=== PATIENT | male | born 1965 | race Caucasian/White ===

== ENCOUNTER 2016-05-22 12:52 | Emergency (ER) | payer SELFPAY ==
[2016-05-22 12:59] VITALS: TEMP 97.5; BMI 35.4
--- NOTE | 2016-05-22 13:32 | EDPRACDOC ---
- General Information Chief Complaint: Shoulder Pain Stated Complaint: RIGHT SHOULDER PAIN - HX SURGERY Time Seen by Provider: 05/22/16 13:24 Information Source: Patient Mode of Arrival: Car Home Medications: Home Medications Cyclobenzaprine HCl [Flexeril] 10 mg PO TID PRN #15 tablet 05/22/16 Hydrocodone Bit/Acetaminophen [Lortab 5/325] 1 tab PO Q4-6H PRN #15 tab Prednisone [Deltasone, Orasone] 20 mg PO DAILY #20 tab 05/22/16 Allergies/Adverse Reactions: Allergies Allergy/AdvReac Type Severity Reaction Status Date / Time No Known Allergies Allergy Verified 11/16/13 16:45 - History of Present Illness Onset: 2 weeks HPI: Pt c/o increased pain in R shoulder x 2 weeks. Denies recent injury, cp, sob, neck pain. Pt states numbness in R hand. R hand dominate. 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 Denies: Diabetes, Stroke - Social Medical History Smoking Status: Heavy tobacco smoker (5 or more cigarettes/day or daily pipe/ cigar) ETOH: Social Substance Abuse: None EDM Review of Systems - Review of Systems Constitutional: No Symptoms Reported. negative: Fever, Chills, Weakness, Fatigue, Loss of Appetite Respiratory: No Symptoms Reported. negative: Cough, Brassy Cough, Barky Cough, Shortness of Breath, Wheezing, Hemoptysis Cardiovascular: No Symptoms Reported. negative: Chest Pain, Palpitations, Syncope, Edema, Orthopnea, PND, Skin Mottling, Cyanosis Gastrointestinal: No Symptoms Reported. negative: Pain, Constipation, Nausea, Vomiting, Diarrhea, Melena, Formula Intolerance Genitourinary: No Symptoms Reported. negative: Dysuria, Hematuria, Frequency, Discharge, Bleeding, Testicular Pain, Neurological: Numbness Musculoskeletal: Arm, Shoulder Integumentary: No Symptoms Reported. negative: Itching, Rash, Bruising, Wound Allergic/Immunologic: No Symptoms Reported. negative: Hives, Itching Hematologic: No Symptoms Reported. negative: Lymphadenopathy, Easy Bruising, Easy Bleeding Psychiatric: No Symptoms Reported. negative: Anxiety, Depression, Hallucinations, Insomnia, Suicidal - Physical Exam Constitutional: Alert Oriented to: Time, Person, Place Last recorded Vital Signs: Last Vital Signs Temp 97.5 F 05/22/16 12:59 Pulse 106 05/22/16 12:59 Resp 20 05/22/16 12:59 BP 175/110 H 05/22/16 12:59 Pulse Ox 96 05/22/16 12:59 Oxygen Pulse Oxygen Saturation 96 O2 Device Room Air Oxygen Flow Rate Fraction of Inspired Oxygen ( FIO2) - HEENT Head: Normal ( normocephalic) Eye Exam: Normal (PERRL, EOMI, Sclera white) Neck: Normal (FROM, trachea at midline) - Respiratory/Cardiovascular Respiratory: Normal - CTA (BBS clear to auscultation without adventitious sounds ) Cardiovascular: Normal (RRR without murmur, gallop or rub) - Musculoskeletal Back: Normal (Non-Tender) Extremities: Normal (Normal tone, Pulses 2+ No cyanosis or edema, FROM) - Integumentary Skin: Normal, Warm, Dry Lymphatics: Normal (no adenopathy) - Neurologic Memory Impaired: Normal Motor Function: Normal (Normal tone, Pulses 2+ No cyanosis or edema, FROM) Mood Description: Normal Perception: Normal ED Shoulder Problem Exam - Musculoskeletal Clavicle: Normal Shoulder: negative: Swelling, Ecchymosis, Deformity, Dislocation, Limited ROM, Tender, Other Drop arm test: Negative Impingement test: Negative Arm: Normal Distal Function/Circulation: Normal - Differential Diagnosis Arthritis, Cervical disc disease, Rotator cuff injury, Sprain - Diagnostic Imaging Shoulder Image interpreted by: Radiologist IMPRESSION: No acute bony pathology. Postoperative changes. Decision Time to Discharge: 14:16 - Departure Disposition: Home Condition: Good Final Diagnosis: Cervical radiculopathy Shoulder arthralgia Qualifiers: Laterality: right Qualified Code(s): M25.511 - Pain in right shoulder Instructions: Cervical Radiculopathy (ED), Shoulder Sprain (ED) Education/Counseling Given To: Patient Education/Counseling Given Regarding: Diagnosis, Treatment, Follow Up Referrals: Rossana Sullivan NP [Primary Care Provider] - One Week Greg Redmond MD [Staff Physician] - One Week Prescriptions: Cyclobenzaprine HCl [Flexeril] 10 mg PO TID PRN #15 tablet PRN Reason: Pain Hydrocodone Bit/Acetaminophen [Lortab 5/325] 1 tab PO Q4-6H PRN #15 tab PRN Reason: Pain Prednisone [Deltasone, Orasone] 20 mg PO DAILY #20 tab Additional Instructions: Return for worse or different symptoms.
--- NOTE | 2016-05-22 14:01 | DIRPT ---
CLINICAL DATA: Shoulder pain for 2.5 weeks EXAM: RIGHT SHOULDER - 2+ VIEW COMPARISON: None. FINDINGS: There is a metal screw in the right coracoid process. No acute fracture or dislocation. IMPRESSION: No acute bony pathology. Postoperative changes. Electronically Signed By: Liu Murdock M.D. On: 05/22/2016 13:59
[2016-05-22] MEDS ORDERED: HYDROCODONE 5 MG/ACETAMIN 325 MG TAB PO ONE (14:21)
[2016-05-22] MEDS ORDERED: PREDNISONE 20 MG TAB PO ONE (14:21)
[2016-05-22 14:33] VITALS: BP 176/115; PULSE 105
== END 2016-05-22 14:30 | disposition home or self-care (01) ==
LOC: EDMC 12:52
DX: M54.12 Radiculopathy, cervical region (principal); M25.511 Pain in right shoulder; I10 Essential (primary) hypertension; M10.9 Gout, unspecified; F17.200 Nicotine dependence, unspecified, uncomplicated; Z79.899 Other long term (current) drug therapy
CPT/HCPCS: 73030; 99283; J3490

== ENCOUNTER 2016-05-31 14:36 | Emergency (ER) | payer SELFPAY ==
[2016-05-31 15:06] VITALS: TEMP 97.7; BMI 36.1
--- NOTE | 2016-05-31 15:22 | EDPRACDOC ---
- General Information Chief Complaint: Hip Pain Stated Complaint: JOINT PAIN Time Seen by Provider: 05/31/16 15:19 Mode of Arrival: Car Home Medications: Home Medications Acetaminophen [Mapap] 1,500 mg PO Q8H PRN 05/31/16 Lisinopril [Prinivil] 10 mg PO DAILY 05/31/16 Oxycodone HCl [Roxicodone] 5 mg PO Q4 PRN #10 tablet 05/31/16 Prednisone [Deltasone] 20 mg PO BID #10 tablet 05/31/16 Allergies/Adverse Reactions: Allergies Allergy/AdvReac Type Severity Reaction Status Date / Time No Known Allergies Allergy Verified 11/16/13 16:45 - History of Present Illness Onset: 3 DAYS HPI: SATURDAY STARTED HAVING PAIN IN JOINTS-KNEES, HIPS. FEELS LIK EPRESSURE. CAN'T SLEEP, HARD GETTING OFF COUCH. SELLS CARS. 1.5 WEEKS AGO DEVELOPED SHOULDER PAIN, TOOK STEROID, MUSCLE RELAXER, IMPROVED. MEDICINE NONCOMPLIANCE FOR BP. TAKING ASPIRIN AND TYLENOL. NO RECENT SURGERIES. 8-10 BEERS PER DAY. PCP 5 POINTS MEDICAL. PAIN 7/10. ED Past Medical History - History Reviewed Yes Nurses notes reviewed and agree except as marked - Patient Medical History Cardiac History: Reports: Hypertension Musculoskeletal History: Reports: Gout Psychological History: Denies: Depression - Family Medical History Reports: Hypertension (father), Cancer (mother), Cardiac Disorders (father). Denies: Diabetes, Stroke - Social Medical History Smoking Status: Heavy tobacco smoker (5 or more cigarettes/day or daily pipe/ cigar) EDM Review of Systems - Review of Systems ROS Negative Except as Marked: Yes All systems reviewed and were negative except as marked Constitutional: No Symptoms Reported Respiratory: No Symptoms Reported Cardiovascular: No Symptoms Reported Neurological: Headache (INTERMITTENT.) Integumentary: No Symptoms Reported Allergic/Immunologic: No Symptoms Reported - Physical Exam Constitutional: Alert (Awake), No apparent distress Oriented to: Time, Person, Place Last recorded Vital Signs: Last Vital Signs Temp 97.7 F 05/31/16 14:44 Pulse 117 05/31/16 14:44 Resp 18 05/31/16 14:44 BP 206/105 H 05/31/16 14:44 Pulse Ox 94 05/31/16 14:44 Oxygen Pulse Oxygen Saturation 94 O2 Device Room Air Oxygen Flow Rate Fraction of Inspired Oxygen ( FIO2) - HEENT Head: Normal ( normocephalic) Eye Exam: Normal (PERRL, EOMI, Sclera white) Oropharynx: Normal (Pharynx:Moist without exudate,Gums-no swelling) Nose: No Symptoms Reported (septum midline) Neck: Normal (FROM, trachea at midline) - Respiratory/Cardiovascular Respiratory: Normal - CTA (BBS clear to auscultation without adventitious sounds ) Cardiovascular: Tachycardia - GI Auscultation: Normal (NABS) Palpation: Normal (Soft,No rebound or guarding, non distended) Tenderness: Non tender Fonseca's Sign: Negative - Musculoskeletal Back: Normal (Non-Tender) Extremities: Normal (Normal tone, Pulses 2+ No cyanosis or edema, FROM) - Integumentary Skin: Normal, Warm, Dry Lymphatics: Normal (no adenopathy) - Neurologic Memory Impaired: Normal Motor Function: Normal (Normal tone, Pulses 2+ No cyanosis or edema, FROM) Cranial Nerve: Normal (CN II-X11 intact sensation, strength 5/5) Cerebellar: Normal Mood Description: Normal Perception: Normal - Results 05/31/16 15:15 05/31/16 15:15 - EKG EKG #1 EKG Time: 15:16 -: Yes EKG interpreted by me Rate: bpm: 105 [place]: Normal Rhythm: ST Block: None Hypertrophy: None ST: Normal Comments: ABNORMAL EKG - Additional Information DISCUSSED WEIGHT LOSS, DIET MOD. DECREASED ETOH INTAKE. CHOL CHECK BY PCP. Decision Time to Discharge: 17:43 - Departure Yes I personally saw and evaluated the patient. Disposition: Home Condition: Stable Final Diagnosis: Arthralgia Qualifiers: Joint pain location: hip Laterality: bilateral Qualified Code(s): M25.551 - Pain in right hip; M25.552 - Pain in left hip Instructions: Arthralgia (ED) Education/Counseling Given To: Patient, Family Member Education/Counseling Given Regarding: Diagnosis, Treatment, Prognosis, Follow Up Referrals: Rosamaria Brown MD [Primary Care Provider] - One Week Prescriptions: Oxycodone HCl [Roxicodone] 5 mg PO Q4 PRN #10 tablet PRN Reason: Pain Prednisone [Deltasone] 20 mg PO BID #10 tablet Forms: Excuse Note
[2016-05-31] MEDS ORDERED: OXYCODONE HCL 5 MG TABLET PO ONE ×2 (15:28→17:44)
[2016-05-31] MEDS ORDERED: IBUPROFEN 600 MG TAB PO ONE (15:28)
[2016-05-31 15:37] LABS: AUTOMATED BASOPHIL 0.9 % (0-2); AUTOMATED EOSINOPHIL 2.4 % (0-5); AUTOMATED LYMPH 26.3 % (17-44); AUTOMATED MONOCYTE 8.5 % (3-10); AUTOMATED NEUTROPHIL 61.9 % (45-76); MPV 8.5 fL (7.4-10.4)
--- NOTE | 2016-05-31 15:50 | DIRPT ---
CLINICAL DATA: Bilateral hip and knee pain. Initial encounter. EXAM: CHEST 2 VIEW COMPARISON: PA and lateral chest 11/16/2013. FINDINGS: Mild linear atelectasis or scar is seen in the lung bases. The lungs are otherwise clear. Heart size is normal. No pneumothorax or pleural effusion. Postoperative change both shoulders is identified. Remote right rib fractures are noted. IMPRESSION: No acute abnormality. Electronically Signed By: Phillip Granger M.D. On: 05/31/2016 15:47
[2016-05-31 15:57] LABS: BLOOD UREA NITROGEN 24 MG/DL (9-20); CALCIUM 9.3 MG/DL (8.4-10.2); CALCULATED OSMOLALITY 267 MOs/Kg (270-290); CHLORIDE 100 mEq/L (98-107); GLUCOSE 109 MG/DL (70-99); SODIUM LEVEL 136 mEq/L (137-146); TOTAL PROTEIN 7.7 G/DL (6.3-8.2)
[2016-05-31 16:53] LABS: ALL NEG? YES; MDMA* NEG (NEGATIVE); METHAMPHETAMINES NEG (NEGATIVE); OXYCODONE NEG (NEGATIVE)
[2016-05-31 17:20] LABS: LEUKOCYTES/URINE NEG (NEGATIVE); NITRITE/URINE NEG (NEGATIVE); RBC/URINE 0-2 (0-2); URINE OCCULT BLOOD NEG (NEG/TRACE); WBC/URINE 0-2 (0-2)
[2016-05-31] MEDS ORDERED: PREDNISONE 20 MG TAB PO ONE (17:44)
[2016-05-31 18:22] VITALS: BP 172/96; PULSE 96
== END 2016-05-31 18:35 | disposition home or self-care (01) ==
LOC: ED 14:36
DX: M25.552 Pain in left hip (principal)
CPT/HCPCS: 36415; 71020; 80053; 80307; 81001; 83690; 85025; 93005; 99284; J3490